=== PATIENT | female | born 1970 | race African-American/Black ===

== ENCOUNTER 2016-12-28 19:28 | Emergency (ER) | payer SELFPAY ==
[~2016-12-28] VITALS: Ht 157.5 cm; Wt 89.5 kg
[~2016-12-28 19:28] MED LIST: ACIDOPHILUS1 EAC4 PO; BACLOFEN10 MG PO; BUTALBITAL COM1 EAC1 PO; CALCIUM + D3 E1 EACH PO; COLACE100 MG PO; CYMBALTA30 MG PO; DILAUDID2 MG PO; EYE ALLERGY REL15 ML BOTH EYES; FIORICET,ESG1 TABLET PO; FLAGYL500 MG PO; FLEXERIL10 MG PO; Feosol PO; HYCODAN SYRUP480 ML PO; LEVOFLOXACIN750 MG PO; LORTAB 5-325 M1 EACH PO; Martinic PO; NAPROSYN-EC500 MG PO; PROAIR HFA8.5 GM IH; PROMETHAZINE HC25 M1 PO; PROPRANOLOL HCL10 MG PO; TESSALON PERLE100 MG PO; THERAGRAN1 TABLET PO; TYLENOL EXTRA500 MG PO; ULTRACET1 TABLET PO; VENTOLIN HFA18 GM IH; VISINE A.C300 DROP/1 BOTH EYES; VITAMIN D2000 INTUN PO; Vitamin D PO; XANAX0.25 MG PO; ZOFRAN ODT4 MG PO; ZOFRAN4 MG PO
[2016-12-28 22:05] LABS: BILIRUBIN NEGATIVE; BLOOD NEGATIVE; COLOR YELLOW ((YELLOW)); GLUCOSE (STRIP) NEGATIVE; KETONES NEGATIVE; LEUKOCYTES NEGATIVE; NITRITE NEGATIVE; PROTEIN (STRIP) 30; SPECIFIC GRAVITY 1.012 (1.000-1.030); UROBILINOGEN 0.2 MG/DL (0.2-1.0)
[2016-12-28 22:09] LABS: ADD MIUA? NO; UCUL ADDED? NO
[2016-12-28] MEDS ORDERED: NEURONTIN100 MG PO (22:55)
[2016-12-28 23:04] VITALS: BP 146/97
== END 2016-12-28 23:25 | disposition home or self-care (01) ==
LOC: EME 19:28 → EXP 19:28
PROVIDERS: Physician Assistant
DX: M54.42 Lumbago with sciatica, left side (principal); J45.909 Unspecified asthma, uncomplicated; M79.7 Fibromyalgia; G89.29 Other chronic pain; Z88.5 Allergy status to narcotic agent; Z88.6 Allergy status to analgesic agent; Z88.8 Allergy status to other drugs, medicaments and biological substances
CPT/HCPCS: 81003; 93971; 99281; 99284; J8540

== ENCOUNTER 2017-11-02 14:02 | Emergency (ER) | payer SELFPAY ==
[~2017-11-02] VITALS: Ht 157.5 cm; Wt 90.4 kg
[~2017-11-02 14:02] MED LIST changes: +NEURONTIN100 MG PO
[2017-11-02 15:41] LABS: HEMATOCRIT 36.7 % (36.0-46.0); HEMOGLOBIN 11.3 G/DL (11.9-15.5); MCH 21.9 PG (29.0-34.0); MCHC 30.8 G/DL (30.0-36.0); MCV 71.1 FL (83-99); RBC DIS.WIDTH-CV 19.5 % (11.8-14.6); RBC DIS.WIDTH-SD 47.9 % (39-53); RED BLOOD COUNT 5.16 M/uL (3.80-5.20); WHITE BLOOD COUNT 8.2 K/uL (4.1-10.2)
[2017-11-02 15:44] LABS: CHLORIDE 106 mEq/L (99-109)
[2017-11-02 15:45] LABS: POTASSIUM 4.2 mEq/L (3.7-5.4); SODIUM 139 mEq/L (136-147)
[2017-11-02 15:46] LABS: GLUCOSE 96 mg/dL (70-99)
[2017-11-02 15:50] LABS: CREATININE 0.8 mg/dL (0.6-1.3); GFR ESTIMATE (CALCULATED) > 59 mL/min/
[2017-11-02 15:51] LABS: UREA NITROGEN (BUN) 9 mg/dL (9-23)
[2017-11-02 16:14] LABS: PLAT.SUFFICIENCY ADEQUATE; PLATELET COUNT 325 K/uL (156-360)
[2017-11-02] MEDS ORDERED: TESSALON PERLE100 MG PO (17:31)
[2017-11-02] MEDS ORDERED: PREDNISONE20 MG PO (17:31)
[2017-11-02] MEDS ORDERED: ZITHROMAX250 MG PO (17:31)
[2017-11-02] MEDS ORDERED: VENTOLIN HFA18 GM IH (17:31)
[2017-11-02 17:43] VITALS: BP 142/76
== END 2017-11-02 17:45 | disposition home or self-care (01) ==
LOC: EME 14:02
PROVIDERS: Nurse Practitioner Family
DX: J20.9 Acute bronchitis, unspecified (principal); J06.9 Acute upper respiratory infection, unspecified; R11.2 Nausea with vomiting, unspecified; J45.909 Unspecified asthma, uncomplicated; M79.7 Fibromyalgia; Z98.84 Bariatric surgery status; Z88.8 Allergy status to other drugs, medicaments and biological substances; Z88.5 Allergy status to narcotic agent
CPT/HCPCS: 71046; 80048; 85027; 87502; 94644; 99281; 99283; J7512